=== PATIENT | female | born 1990 | race Caucasian/White ===

== ENCOUNTER 2023-11-23 11:20 | Emergency (ER) | payer BC, SELFPAY ==
[2023-11-23 11:34] VITALS: BP 114/77; BMI 30.9
[2023-11-23 11:57] LABS: % Basophils 0.7 % (0-2); % Eosinophils 1.2 % (0-6); % Immature Granulocytes 0.2 % (0-0.5); % Lymphocytes 21.8 % (20.5-51.1); % Monocytes 3.3 % (1.7-9.3); % Neutrophils 72.8 % (42.2-75.2); Absolute Basophils 0.1 10^3/uL (0-0.2); Absolute Eosinophils 0.1 10^3/uL (0-0.7); Absolute Lymphocytes 2.3 10^3/uL (1.2-3.4); Absolute Monocytes 0.4 10^3/uL (0.1-0.6); Absolute Neutrophils 7.7 10^3/uL (1.4-6.5); Hematocrit 37.2 % (37.0-47.0); Hemoglobin 12.7 g/dL (12.0-16.0); Mean Corp Hgb Conc. 34.1 g/dL (33.0-37.0); Mean Corpuscular Hgb 28.2 pg (27.0-31.0); Mean Corpuscular Volume 82.7 fL (81.0-99.0); Mean Platelet Volume 9.4 fL (7.4-10.4); Nucleated Red Blood Cells % 0 %; Platelet Count 366 10^3/uL (130-400); Red Cell Dist. Width 12.4 % (11.5-14.5); White Blood Cell Count 10.6 10^3/uL (4.8-10.8)
[2023-11-23 12:16] LABS: ALT (SGPT) 14 U/L (0-35); AST (SGOT) 20 U/L (14-36); Albumin 4.5 g/dl (3.5-5.0); Alkaline Phosphatase 90 U/L (38-126); Blood Urea Nitrogen 11 mg/dl (7-17); Calcium 9.7 mg/dl (8.4-10.2); Carbon Dioxide 26 mmol/L (22-30); Chloride 106 mmol/L (98-107); Estimated Creatinine Clearance > 125 ml/min; Glucose 142 mg/dl (70-99); Potassium 4.1 mmol/L (3.5-5.1); Sodium 140 mmol/L (135-145); Total Bilirubin 0.6 mg/dl (0.2-1.3); Total Protein 7.1 g/dl (6.3-8.2); eGFR > 60.00
[2023-11-23 12:20] LABS: Troponin I < 0.012 ng/ml
[2023-11-23 14:14] VITALS: BP 121/73
[2023-11-23 15:00] VITALS: BP 117/74
--- NOTE | 2023-11-23 15:12 | ED.GENMED ---
History of Present Illness
General
Chief Complaint: Chest Pain
Source: patient
Exam Limitations: none
Time Seen by Provider: 11/23/23 15:03
Travel History
Have you had any contact with someone who has COVID-19?: No
Do you have any symptoms of coronavirus? Fever > 100 degrees, chills, cough, shortness of breath, sore throat, loss of taste or smell, muscle aches, or headache?: No
History of Present Illness
History of Present Illness:
33 year old female with history of HTN and hyperlipidemia and strong family history of CVD presents with intermittent central left-sided chest pain over the past week. The pain seems to be made worse with deep breathing. She denies shortness of
breath. No leg swelling or calf pain. No recent travel or surgery. She is not on any hormones. She does not smoke. She is treated with labetalol and rosuvastatin. 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 She called the lime sludge [employer] operator office today and
was referred here for evaluation of her chest pain. No known injury. No fever. No other complaints at this time
Past History
Past History
ED Past Medical History: HTN, Hypercholesterolemia and Other (Preeclampsia, endometriosis)
ED Past Surgical History:
Social History
Tobacco: Former smoker
Alcohol: None
Drug: Marijuana
Personal:
Living: with family
Employment: Employed
Family History
Family History: Hypertension
Phy Exam
Physical Exam
Physical Exam:
General: Well-appearing female no acute respiratory distress
HEENT: Normocephalic atraumatic neck is supple
Heart: Regular rate and rhythm no murmurs
Lungs: Clear to auscultation bilaterally no wheezing
Extremities: No cyanosis or edema
Skin: Warm no rash or lesions
Scores
Heart Score for Chest Pain Patients
STEMI patient?: No
History: Slightly or Non-Suspicious
ECG: Normal
Age: </= 45 years
Risk Factors: 1 or 2 Risk Factors
Troponin: </= Normal Limit
Heart Score for Chest Pain Patients: 1
Heart Score Risk: 2.5% MACE over next 6 weeks
Course
Orders/Labs/Results
Orders:
Orders
11/23/23 11:33
EKG [Electrocardiogram (*1)] Urgent
Reason for Study: Chest Pain
11/23/23 11:34
EKG- Treatment ONCE
11/23/23 11:43
Complete Blood Count/With Diff Urgent
Comprehensive Metabolic Panel Urgent
Troponin I Urgent
11/23/23 12:37
CR Chest - 2 Views Urgent
Comment:
Reason For Exam: chest pain
11/23/23 15:28
D-Dimer Urgent
Abnormal Lab Results
11/23/23
11:43
Absolute Neuts (auto) 7.7 H 10^3/uL
(1.4-6.5)
Glucose 142 H mg/dl
(70-99)
11/23/23 11:43
11/23/23 11:43
Vital Signs
Initial and Last Documented VS:
Initial Vital Signs
Temp Pulse Resp BP Pulse Ox
98.5 F 74 16 114/77 98
11/23/23 11:34 11/23/23 11:34 11/23/23 11:34 11/23/23 11:34 11/23/23 11:34
Last Documented Vital Signs
Temp Pulse Resp BP Pulse Ox
98.5 F 71 15 117/74 98
11/23/23 11:34 11/23/23 15:00 11/23/23 15:00 11/23/23 15:00 11/23/23 15:00
MDM/Problems Addressed
Differential Diagnosis Includes:
Chest pain slightly pleuritic in nature. Atypical for coronary artery disease or ACS. Considered PE however low risk factors. Consider chest wall strain.
EKG through triage shows sinus rhythm with a rate of 65 no ischemic changes troponin undetectable. I would expect with 7 days worth of symptoms at the troponin will be elevated in the event of cardiac related symptoms. Chest x-ray ordered through
triage I personally reviewed and is clear. Will check D-dimer.
*Critical Care Note
Total Time (30-74mins, 75-104mins- exclusive of procedures): Not Applicable
Update Note
Update Note:
D-dimer within normal limits. Rest of workup is negative. Troponin was also negative. Patient has increased pain with breathing and moving. Suspect chest wall discomfort as source of patient's pain. Recommended ibuprofen or Tylenol. Stable for
discharge
ED Attending Note
-
Portions of this chart may have been created with voice recognition software.� Occasional wrong word or��sound alike� substitutions may have occurred due to the inherent limitations of voice recognition software.
Discharge Plan
Departure
Patient Disposition: Home (Routine Discharge)
Date of Disposition: 11/23/23
Time of Disposition: 16:07
Patient with high blood pressure during this ER visit?: No
Discharge Problem:
Chest wall pain
Instructions: Costochondritis (DC)
Prescriptions:
No Action
paroxetine HCl 10 MG tablet
10 mg PO DAILY
alprazolam 0.25 MG tablet
0.25 mg PO DAILYPRN PRN (Reason: anxiety)
Patient Comments:
02/23/2022: last filled 01/08/22, 20 tabs for 20 days from [id number]
cholecalciferol (vitamin D3) 2,000 UNITS tablet
2,000 units PO DAILY
labetalol 200 MG tablet
200 mg PO BID Qty: 60 0RF
amlodipine 10 MG tablet
10 mg PO DAILY Qty: 30 0RF
Referrals:
Alison Ortiz CRNP [Family Provider] -
Activity Restrictions/Additional Instructions:
Use ibuprofen or Tylenol for your pain. Return here for worsening symptoms otherwise follow-up with your lime sludge [employer] operator and/or family doctor
Interventions
Interventions:
*Risk Screen - Suicide Last Done: 11/23/23 15:19
*General Assessment Last Done: 11/23/23 15:19
*Neglect/Abuse Screening Last Done: 11/23/23 15:19
ED- Fall Risk Assessment Last Done: 11/23/23 15:19
*ED COVID-19 Vaccine History Last Done: 11/23/23 11:34
ED- Cardiac Assessment Last Done: 11/23/23 15:19
[2023-11-23 15:50] LABS: D-Dimer 0.49 ug/mlFEU (0.00-0.50)
[2023-11-23 16:00] VITALS: BP 120/80
== END 2023-11-23 16:31 | disposition home or self-care (01) ==
LOC: EMR 11:20
PROVIDERS: Emergency Medicine; Physician Assistant; EMERGENCY PHYSICIAN Emergency Medicine; FAMILY PHYSICIAN Nurse Practitioner Adult Health
DX: R07.89 Other chest pain (principal); I10 Essential (primary) hypertension; Z87.891 Personal history of nicotine dependence; Z82.49 Family history of ischemic heart disease and other diseases of the circulatory system
CPT/HCPCS: 99285; 71046; 80053; 84484; 85025; 85379; 93005

== ENCOUNTER → 2024-04-03 09:40 | Outpatient (REF) | payer BC, SELFPAY | LOC: PAVMRI 09:40 | PROVIDERS: ATTENDING PHYSICIAN Nurse Practitioner Adult Health | DX: G43.119 Migraine with aura, intractable, without status migrainosus (principal); R51.9 Headache, unspecified; R47.89 Other speech disturbances; R29.818 Other symptoms and signs involving the nervous system | CPT/HCPCS: 70553; A9575 ==

== ENCOUNTER → 2025-01-17 11:08 | Outpatient (REF) | payer BC, SELFPAY | LOC: HWRCS 11:08 | PROVIDERS: ATTENDING PHYSICIAN Internal Medicine; FAMILY PHYSICIAN Nurse Practitioner Adult Health | DX: R07.9 Chest pain, unspecified (principal) | CPT/HCPCS: 93306 ==

== ENCOUNTER → 2025-01-31 12:33 | Outpatient (REF) | payer BC, SELFPAY | LOC: RCS 12:33 | PROVIDERS: ATTENDING PHYSICIAN Internal Medicine; FAMILY PHYSICIAN Nurse Practitioner Adult Health | DX: R07.9 Chest pain, unspecified (principal); R00.2 Palpitations; I10 Essential (primary) hypertension | CPT/HCPCS: 93017 ==